=== PATIENT | male | born 1970 | race Two or more races ===

== ENCOUNTER 2016-06-09 19:31 | Emergency (ER) | payer MEDICAID ==
[~2016-06-09] VITALS: Ht 175.3 cm; Wt 81.6 kg
[~2016-06-09 19:31] MED LIST: GABA-534; HIV MEDICATIONS; HYDR-3976; IBUP-1481
[2016-06-09 19:55] VITALS: BP 150/83
[2016-06-09] MEDS ORDERED: KETOROLAC TROMETHAMINE INJ 30 MG/ML VIAL ONE (20:13)
[2016-06-09] MEDS ORDERED: KETOROLAC TROMETHAMINE INJ 30 MG/ML VIAL IM ONE (20:30)
== END 2016-06-09 20:49 | disposition home or self-care (01) ==
LOC: ER 19:35
DX: M25.512 Pain in left shoulder (principal); F17.200 Nicotine dependence, unspecified, uncomplicated; M54.5 Low back pain; G89.29 Other chronic pain
CPT/HCPCS: 73030-TC; A4606; J1885; Z7610

== ENCOUNTER 2016-06-15 04:36 | Emergency (ER) | payer MEDICAID ==
[~2016-06-15] VITALS: Ht 175.3 cm; Wt 81.6 kg
[2016-06-15] MEDS ORDERED: KETOROLAC TROMETHAMINE INJ 30 MG/ML VIAL ONE (05:19)
[2016-06-15] MEDS ORDERED: KETOROLAC TROMETHAMINE INJ 60 MG/2 ML VIAL IM ONE (05:30)
[2016-06-15 06:31] VITALS: BP 144/88
== END 2016-06-15 06:32 | disposition home or self-care (01) ==
LOC: ER 04:37
DX: M54.10 Radiculopathy, site unspecified (principal); M48.02 Spinal stenosis, cervical region
CPT/HCPCS: 72125; 96372; 99285; A4606; J1885; Z7610

== ENCOUNTER 2016-06-16 12:27 | Emergency (ER) | payer MEDICAID, OTHER ==
[~2016-06-16] VITALS: Ht 175.3 cm; Wt 81.6 kg
[2016-06-16 12:30] VITALS: BP 140/81
== END 2016-06-16 12:51 | disposition home or self-care (01) ==
LOC: EDUNIT# 12:27 → ER 12:31
DX: M54.12 Radiculopathy, cervical region (principal); F17.210 Nicotine dependence, cigarettes, uncomplicated
CPT/HCPCS: 99283; A4606; Z7610; Z7502

== ENCOUNTER 2017-01-14 18:05 | Emergency (ER) | payer MEDICAID ==
[~2017-01-14] VITALS: Ht 175.3 cm; Wt 86.2 kg
[2017-01-14 18:15] VITALS: BP 143/92
== END 2017-01-14 20:39 | disposition home or self-care (01) ==
LOC: ER 18:08
DX: M72.2 Plantar fascial fibromatosis (principal); I10 Essential (primary) hypertension; Z21 Asymptomatic human immunodeficiency virus [HIV] infection status; F17.200 Nicotine dependence, unspecified, uncomplicated
CPT/HCPCS: A4606; Z7610

== ENCOUNTER 2018-11-26 19:53 | Emergency (ER) | payer MEDICARE, MEDICAID ==
[~2018-11-26] VITALS: Ht 165.1 cm; Wt 90.7 kg
[~2018-11-26 19:53] MED LIST changes: -IBUP-1481; +IBUP-1953
[2018-11-26 20:00] VITALS: BP 129/90
== END 2018-11-26 20:42 | disposition home or self-care (01) ==
LOC: ER 19:58
DX: H66.92 Otitis media, unspecified, left ear (principal); I10 Essential (primary) hypertension; F17.200 Nicotine dependence, unspecified, uncomplicated; Z98.890 Other specified postprocedural states